=== PATIENT | female | born 1945 | race Caucasian/White ===

== ENCOUNTER → 2018-05-18 12:12 | Outpatient (CLI) | payer MEDICARE, BC, SELFPAY ==
--- NOTE | 2018-05-18 12:18 | CT_ITS ---
STUDY: CT ABDOMEN AND PELVIS WITHOUT CONTRAST REASON FOR EXAM: Female, 72 years old. Hematuria. RADIATION DOSAGE (If Supplied By Facility): CTDIvol = ( 11.90 ) mGy, DLP = ( 544 ) mGycm TECHNIQUE: Transaxial images were obtained from the dome of the diaphragm to the symphysis pubis without oral contrast, and without intravenous contrast. Sagittal and coronal images were reconstructed. Individualized dose optimization techniques were used for this CT. COMPARISON: None. FINDINGS: The visualized lung bases are unremarkable. The visualized portions of the heart are within normal limits. Normal liver. Normal gallbladder and extrahepatic biliary system. Normal spleen. Normal pancreas. Normal bilateral adrenal glands. Normal right kidney. Normal left kidney. There is a small hiatal hernia. Normal small intestine. There are multiple colonic diverticula consistent with diverticulosis. There is non-visualization of the appendix. There is scattered atherosclerotic calcification of the abdominal aorta, without a demonstrated aneurysm. Normal inferior vena cava. Normal retroperitoneum. Normal urinary bladder. There is absence of the uterus consistent with a prior hysterectomy. Normal abdominal wall. Small bilateral benign-appearing inguinal lymph nodes. Disc space narrowing at the L5-S1 level. CT/Abdomen/Pelvis without Cont IMPRESSION: No acute abnormality is seen. Electronically Signed: Andres Olivera MD at 13:25 EDT Tel [phone], Service support ,
== END ==
PROVIDERS: Family Provider Family Medicine; PCP Family Medicine; Visit Provider Urology
DX: R31.9 Hematuria, unspecified (principal)
CPT/HCPCS: 74176; 87086; 87088

== ENCOUNTER → 2018-05-18 17:45 | Outpatient (CLI) | payer MEDICARE, BC, SELFPAY | PROVIDERS: Family Provider Family Medicine; PCP Family Medicine; Visit Provider Urology | DX: R31.9 Hematuria, unspecified (principal) | CPT/HCPCS: 87086 ==

== ENCOUNTER 2021-12-16 10:18 | Day surgery (SDC) | payer MEDICARE, BC, SELFPAY ==
[2021-12-16] VITALS (7 sets, daily range): BP systolic 103–145; BP diastolic 62–93; PULSE 59–71; RESP 16; TEMP 36.2–36.4; O2SAT 100; BMI 32.4
[2021-12-16] MEDS: Lactated Ringers 1,000 ML 15 ML IV (10:55)
--- NOTE | 2021-12-16 12:49 | PCM.HP.STD ---
HPI - General HPI Narrative GRAHAM NOLASCO, is a 76 F who presents for removal of InterStim device PFSH Medical History (Updated 12/16/21 @ 12:[address] Bethel Murphy MD) Breast cancer Gastric reflux High cholesterol History of echocardiogram History of steroid therapy Hypercholesterolemia Non-smoker Wears dentures Wears glasses Home Medications acetaminophen [Tylenol Extra Strength] 500 mg PO PRN PRN 12/08/16 [History Last Taken Unknown] atorvastatin [Lipitor] 20 mg PO QHS 12/08/16 [History Last Taken Unknown] cholecalciferol (vitamin D3) [Vitamin D3] 1,000 unit PO QHS 12/08/16 [History Last Taken Unknown] omeprazole magnesium [Prilosec Otc] 20 mg PO PRN PRN 12/08/16 [History Last Taken 12/16/21 07:30] polyethylene glycol 3350 17 gram/dose oral powder 17 g PO DAILY 02/09/21 [History Last Taken Unknown] anastrozole 1 mg tablet 1 mg PO DAILY 04/14/21 [History Last Taken Unknown] oxycodone-acetaminophen 1 tab PO Q6H PRN 7 Days #14 tab 12/16/21 [Rx Last Taken Unknown] Allergy/AdvReac Type Severity Reaction Status Date / Time No Known Allergies Allergy Verified 12/16/21 10:48 Family History (Updated 02/09/21 @ 11:32 by Orquidea Carter, MINNA) Aunt Cancer BREAST Surgical History (Updated 12/09/21 @ 12:31 by Mag Buchanan) H/O cataract removal with insertion of prosthetic lens H/O lumpectomy History of partial hysterectomy History of surgery Social History (Updated 02/09/21 @ 11:34 by Orquidea Carter, RN) adopted: No household members: spouse number of children: 0 current occupational status: retired current occupational exposures/hazards: No pets and animals: No history of recent travel: No Smoking Status: Never smoker Vital Signs Vital Signs Vital Signs: 12/16/21 10:49 Temperature 97.6 F L Temperature Source Temporal Pulse Rate 67 Respiratory Rate 16 Respiratory Pattern Normal Blood Pressure 103/62 Blood Pressure Mean 75 Blood Pressure Source Monitor Blood Pressure Position Semi-Fowlers Blood Pressure Location Left Arm Pulse Ox 100 Oxygen Delivery Method Room Air Weight Weight: 88.451 kg Body Mass Index (BMI) 32.4
--- NOTE | 2021-12-16 12:50 | PCM.DC ---
Discharge Instructions Diet Discharge Diet: No restrictions Activity Discharge Activity: Return to Normal Activity and May Not Drive (while taking narcotic pain medications.) Dressing / Incision Call your doctor if you observe: Fever of 101 or Higher Follow Up Care Please Follow Up With: Bethel Murphy MD When: Call [phone] for an appointment Test Results: Test results from this visit will be discussed in further detail at your follow-up appointment, if applicable. Discharge Plan Admission Primary Reason for Your Visit: remove interstim device Attending Provider: Bethel Murphy Primary Care Provider: Ledy Abdi Discharge Orders/Prescriptions Prescriptions: New oxycodone-acetaminophen 5-325 mg tablet 1 tab PO Q6H PRN (Reason: pain) 7 Days Qty: 14 RF: 0 No Action polyethylene glycol 3350 [Miralax] 17 gram/dose powder 17 g PO DAILY RF: 0 anastrozole 1 mg tablet 1 mg PO DAILY RF: 0 atorvastatin [Lipitor] 20 MG tablet 20 mg PO QHS RF: 0 acetaminophen [Tylenol Extra Strength] 500 MG tablet 500 mg PO PRN PRN (Reason: Pain) RF: 0 omeprazole magnesium [Prilosec OTC] 20 MG tablet,delayed release (DR/EC) 20 mg PO PRN PRN (Reason: Indigestion) RF: 0 cholecalciferol (vitamin D3) [Vitamin D3] 2,000 UNIT capsule 1,000 unit PO QHS RF: 0 Referrals / Follow Up: Ledy Abdi MD [Primary Care Provider] - Bethel Murphy MD [STAFF PHYSICIAN] - Disposition Disposition (needs filled in before D/C Order can be placed): Home, Self Care
[2021-12-16] MEDS: Cefazolin 2 GM in 0.9% Normal Saline 100 ML IV (12:51)
[2021-12-16] MEDS: Lidocaine 1% (50 ml mdv) 50 ML Vial (13:01)
--- NOTE | 2021-12-16 14:02 | OP.PCM_ITS ---
Report of Operation Date of Procedure: 12/16/21 Pre-Operative Diagnosis: Nonfunctioning InterStim device Post-Operative Diagnosis: Same Surgery/Procedure Performed:: Removal of InterStim device stage I and stage II Description of Surgical Findings:: Patient was taken back to the operating room at the [facility] duction of general anesthesia she was placed facedown on the table and we made infiltrated the skin with lidocaine 1% then made incision over the pocket and dissected down to the pocket and found the generator we then pulled on the lead of the generator and found the insertion site made a small incision over the insertion site and then pulled up the lead and then cut the lead and then removed the lead from the insertion site and remove the generator and the lead all intact. We then irrigated the wounds obtain hemostasis with electrocautery and then prepped closed the insertion java j2ee lead and we closed the generator lead with subcuticular stick stitches intact and dressings were placed anesthesia was reversed taken back to PACU in good condition she will follow-up in a few weeks for checkup. Surgeon: luigi Type of Anesthesia: General Admit VTE Documentation VTE Present on Admission: No VTE Mechan Device Prophylaxis: SCD's VTE Pharm Prophylaxis ordered?: No
== END 2021-12-16 23:59 | disposition home or self-care (01) ==
LOC: SDC 10:19 → AC 10:20
PROVIDERS: PCP Family Medicine; Referring Provider Family Medicine; Visit Provider Urology
PROC: (CPT 64585; principal; 2021-12-16 12:15)
DX: Z45.42 Encounter for adjustment and management of neurostimulator (principal); E78.00 Pure hypercholesterolemia, unspecified; N32.81 Overactive bladder; Z85.3 Personal history of malignant neoplasm of breast; Z79.899 Other long term (current) drug therapy
CPT/HCPCS: 64585; 64595; 00400; J7120

== ENCOUNTER → 2022-12-13 | Outpatient (CLI) | payer MEDICARE, BC, SELFPAY | END | disposition home or self-care (01) | LOC: LABSPEC 16:54 | PROVIDERS: PCP Family Medicine; Referring Provider Urology; Visit Provider Urology | DX: N30.20 Other chronic cystitis without hematuria (principal) | CPT/HCPCS: 87086; 87088 ==